=== PATIENT | male | born 1955 | race Asian ===

== ENCOUNTER 2023-11-16 16:10 | Emergency (ER) | payer MEDICARE, OTHER ==
[~2023-11-16] VITALS: Ht 172.7 cm; Wt 63.6 kg
[~2023-11-16 16:10] MED LIST: ATOR40TA28 PO; CITA-144 PO; DOCU-412 PO; FERR325T27 PO; LISI-892 PO; METHADONE; METO25 PO; NORT75CA PO; SOFO400T PO; [UNRECOGNIZED DRUG - CODE] PO
[2023-11-16 16:18] VITALS: TEMP 98.1
[2023-11-16] MEDS: SODIUM CHLORIDE 0.9% 1,000 ML IV ONE (16:31)
[2023-11-16 16:55] LABS: BASOPHILS % (AUTO) 1.3 % (0.0-2.0); EOSINOPHILS % (AUTO) 4.5 % (1.0-6.0); HEMATOCRIT 40.3 % (41-53); LYMPHOCYTES % (AUTO) 42.3 % (22.0-44.0); MEAN CORPUSCULAR HEMOGLOBIN 24.6 pg (26.0-34.0); MEAN CORPUSCULAR HGB CONC 32.2 G/dL (31.0-37.0); MEAN CORPUSCULAR VOLUME 77 fL (80-100); MONOCYTES # (AUTO) 0.6 K/uL (0.1-1.0); MONOCYTES % (AUTO) 6.6 % (2.0-9.0); NEUTROPHILS # (AUTO) 4.3 K/uL (1.8-7.7); NEUTROPHILS % (AUTO) 45.3 % (40.0-70.0); PLATELET COUNT (AUTO) 226 K/uL (150-450); RED BLOOD CELL COUNT(AUTO) 5.27 MIL/uL (4.50-5.90); RED CELL DISTRIBUTION WIDTH 18.6 % (11.5-14.5); WHITE BLOOD COUNT (AUTO) 9.4 K/uL (4.5-11.0)
[2023-11-16 17:06] LABS: ANION GAP 12 mmol/L (8-16); CALCIUM, TOTAL 8.6 mg/dL (8.8-10.5); CARBON DIOXIDE 25 mmol/L (22-29); CHLORIDE 100 mmol/L (98-107); GLOMERULAR FILTR. RATE CALC 60 mL/min (>60); GLUCOSE,RANDOM 178 mg/dL (70-110); POTASSIUM 3.5 mmol/L (3.5-5.1); SODIUM SERUM 137 mmol/L (136-145); UREA NITROGEN, BLOOD 19 mg/dL (7-18)
[2023-11-16 17:11] LABS: TROPONIN I-HIGH SENSITIVITY 16 ng/L (<76)
[2023-11-16 17:12] LABS: LACTIC ACID 1.6 mmol/L (0.4-2.0)
[2023-11-16 17:19] LABS: ALCOHOL, BLOOD (SERUM) < 3 mg/dL (0-10); B-TYPE NATRIURETIC PEPTIDE 69 pg/mL (0-100)
[2023-11-16 17:30] LABS: ALANINE AMINOTRANSFERASE 34 U/L (12-78); ALBUMIN 3.3 g/dL (3.4-5.0); ALKALINE PHOSPHATASE 97 U/L (46-116); ASPARTATE AMINOTRANSFERASE 42 U/L (15-37); BILIRUBIN,TOTAL 0.3 mg/dL (0.1-1.0); CREATINE KINASE, TOTAL ONLY 146 U/L (39-308); TOTAL PROTEIN, SERUM 7.2 g/dL (6.4-8.2)
[2023-11-16 18:32] LABS: COVID AG,FIA SOURCE NASAL SWAB
[2023-11-16 18:43] LABS: AMPHET/METH SCREEN,URINE POSITIVE (NEGATIVE); BARBITURATE SCREEN, URINE NEGATIVE (NEGATIVE); BENZODIAZEPINES SCREEN,URINE NEGATIVE (NEGATIVE); CANNABINOID SCREEN,URINE POSITIVE (NEGATIVE); COCAINE SCREEN,URINE NEGATIVE (NEGATIVE); METHADONE SCREEN, URINE NEGATIVE (NEGATIVE); OPIATE SCREEN,URINE NEGATIVE (NEGATIVE); PHENCYCLIDINE SCREEN,URINE NEGATIVE (NEGATIVE)
[2023-11-16 18:49] LABS: ALCOHOL, URINE DRUG SCREEN NEGATIVE (NEGATIVE)
[2023-11-16 18:55] LABS: SARS-COV2 (COVID) ANTIGEN,FIA Negative (Negative)
[2023-11-16 19:16] LABS: TROPONIN I-HIGH SENSITIVITY 57 ng/L (<76)
[2023-11-16 19:30] VITALS: BP 184/104; PULSE 76; RESP 12
[2023-11-16] MEDS: LISINOPRIL 10 MG TABLET PO ONE (19:35)
[2023-11-16] MEDS ORDERED: DICYCLOMINE HCL 10 MG CAPSULE PO PRN (20:00)
[2023-11-16] MEDS ORDERED: MAGNESIUM HYDROXIDE SUSPENSION 30 ML UDCUP PO PRN (20:00)
[2023-11-16] MEDS ORDERED: IBUPROFEN 600 MG TABLET PO PRN (20:00)
[2023-11-16] MEDS ORDERED: ONDANSETRON HCL 4 MG/2 ML VIAL IVP PRN (20:00)
[2023-11-16] MEDS ORDERED: IPRATROPIUM BROMIDE 0.5 MG/2.5 ML NEB SOLUTION NEB PRN (20:00)
[2023-11-16] MEDS ORDERED: BISACODYL 10 MG RECTAL RECTAL SUPPOSITORY PR PRN (20:00)
[2023-11-16] MEDS ORDERED: CloNIDine HCL 0.1 MG TABLET PO PRN (20:00)
[2023-11-16] MEDS: SODIUM CHLORIDE 0.45% 1,000 ML IV SCH (20:00)
[2023-11-16] MEDS ORDERED: BACLOFEN 10 MG TABLET PO PRN (20:00)
[2023-11-16] MEDS ORDERED: PROMETHAZINE HCL 25 MG TABLET PO PRN (20:00)
[2023-11-16] MEDS ORDERED: ALBUTEROL SULFATE 2.5 MG/0.5 ML NEB SOLUTION NEB PRN (20:00)
[2023-11-16] MEDS ORDERED: MAG HYDROX/ALUMINUM HYD/SIMETH ES 30 ML SUSPENSION UDCUP PO PRN (20:00)
[2023-11-16] MEDS ORDERED: LOPERAMIDE HCL 2 MG/15 ML SUSPENSION UDCUP PO PRN (20:00)
[2023-11-16] MEDS ORDERED: TraZODone HCL 50 MG TABLET PO PRN (20:00)
[2023-11-16] MEDS ORDERED: HydrOXYzine PAMOATE 50 MG CAPSULE PO PRN (20:00)
[2023-11-16] MEDS ORDERED: ACETAMINOPHEN 325 MG TABLET PO PRN ×2 (20:00)
[2023-11-16] MEDS ORDERED: LORazepam 1 MG TABLET PO PRN (20:00)
[2023-11-16] MEDS ORDERED: ZOLPIDEM TARTRATE 5 MG TABLET PO PRN (20:00)
[2023-11-17] MEDS ORDERED: HEPARIN SODIUM,PORCINE 5,000 UNITS/ML VIAL SQ SCH
[2023-11-17] MEDS ORDERED: PANTOPRAZOLE SODIUM 40 MG DR TABLET PO SCH (09:00)
== END 2023-11-16 20:32 | disposition left against medical advice (07) ==
LOC: EMS 16:12
DX: T65.91XA Toxic effect of unspecified substance, accidental (unintentional), initial encounter (principal); F32.A Depression, unspecified; F12.90 Cannabis use, unspecified, uncomplicated; F11.90 Opioid use, unspecified, uncomplicated; Z20.822 Contact with and (suspected) exposure to COVID-19; Y92.89 Other specified places as the place of occurrence of the external cause
CPT/HCPCS: 99285; 70450; 96360; 71045; 87426; 80053; 82550; 83605; 83880; 84484; 85025; 36415; 72125; 93005; 80307; G0480